=== PATIENT | male | born 1975 | race Caucasian/White ===

== ENCOUNTER 2016-12-20 17:58 | Inpatient (IN) | payer BC ==
[2016-12-20] MEDS ORDERED: ACETAMINOPHEN 500 MG TABLET PO ONE (18:31)
--- NOTE | 2016-12-20 18:43 | Emergency Department Record ---
History of Present Illness - General Source: Patient Mode of Arrival: Wheelchair Limitations: No limitations - History of Present Illness Initial comments: 41 yo male presents to ED with a CC of left lower extremity pain and fever following an injury to the lower extremity 2 days ago. Patient reports that he may have injured his lower extremity falling from his truck, but denies specific lower extremity injury. Patient started to have increase pain, fever, and vomiting last night. Patient reports similar symptoms related to cellulitis previously, denies history of DM. Patient reports a history of lymphedema. MD Complaint: Extremity pain Onset/Timin -: Days(s) Location: Left, Lower Leg History of Same: Yes -: Yes Arthralgia, Yes Fever Radiation: None Quality: Aching Consistency: Constant Improves with: Nothing Associated Symptoms: Fever, Myalgias <ASIA FINCH - Last Filed: 12/20/16 18:49> <Regine Talbert - Last Filed: 12/20/16 20:36> - General Chief complaint: Lower Extremity Pain Stated complaint: LEG PAIN/FEVER Time Seen by Provider: 12/20/16 18:31 - Related Data Home Medications Medication Instructions Recorded Confirmed Last Taken Losartan Potassium [Cozaar] 100 mg PO DAILY 12/30/15 12/20/16 12/20/16 Multivitamin [Multi-Vitamin Daily] 1 each PO DAILY 12/30/15 12/20/16 12/20/16 Amlodipine Besylate [Norvasc] 10 mg PO DAILY 05/01/16 12/20/16 12/20/16 Hydralazine HCl [Apresoline] 25 mg PO ASDIR 05/01/16 12/20/16 12/20/16 Hydrochlorothiazide 25 mg PO ASDIR 05/01/16 12/20/16 12/20/16 [Hydrochlorothiazide] Carvedilol [Coreg] 25 mg PO BID 12/20/16 12/20/16 12/19/16 Cetirizine HCl [Zyrtec] 10 mg PO DAILY 12/20/16 12/20/16 12/19/16 Cholecalciferol (Vitamin D3) 2,000 unit PO DAILY 12/20/16 12/20/16 12/19/16 [Vitamin D3] Levothyroxine Sodium 50 mcg PO DAILY 12/20/16 12/20/16 12/19/16 Allergies Allergy/AdvReac Type Severity Reaction Status Date / Time loratadine [From Claritin] Allergy SHORTNESS Verified 12/20/16 18:16 OF BREATH Travel Screening - Travel/Exposure Within Last 30 Days Have you traveled within the last 30 days?: No <ASIA FINCH - Last Filed: 12/20/16 18:49> Review of Systems Constitutional: Reports: Chills, Fever, Malaise, Weakness. Denies: Night sweats Eyes: Denies: Eye discharge, Eye pain ENT: Denies: Congestion, Ear pain, Epistaxis Respiratory: Denies: Cough, Dyspnea Cardiovascular: Denies: Chest pain, Dyspnea on exertion Endocrine: Reports: Fatigue. Denies: Heat or cold intolerance Gastrointestinal: Reports: Nausea, Vomiting. Denies: Abdominal pain Genitourinary: Denies: Dysuria, Frequency, Incontinence, Retention Musculoskeletal: Reports: Arthralgia. Denies: Back pain, Gout, Joint swelling Skin: Denies: Bruising, Change in color Neurological: Reports: Headache. Denies: Abnormal gait, Confusion, Seizure Psychiatric: Denies: Anxiety Hematological/Lymphatic: Denies: Anemia, Blood Clots <ASIA FINCH - Last Filed: 12/20/16 18:49> Past Medical History - SOCIAL HISTORY Smoking Status: Never smoker Alcohol Use: None Drug Use: None - RESPIRATORY Hx Respiratory Disorders: Yes Hx Asthma: Yes Hx Bronchitis: Yes Hx Pneumonia: Yes Hx Sleep Apnea: Yes Hx of CPAP: Yes Comment:: seasonal allergies - CARDIOVASCULAR Hx Cardio Disorders: Yes Hx Hypertension: Yes Comment:: murmur - NEURO Hx Neuro Disorders: No - GI Hx GI Disorders: Yes Hx Reflux: Yes - Hx Genitourinary Disorders: No - ENDOCRINE Hx Endocrine Disorders: Yes Hx Diabetes: No Hx Thyroid Disease: Yes - MUSCULOSKELETAL Hx Musculoskeletal Disorders: No - PSYCH Hx Psych Problems: No - HEMATOLOGY/ONCOLOGY Hx Hematology/Oncology Disorders: No <ASIA FINCH - Last Filed: 12/20/16 18:49> Family Medical History Any Significant Family History?: Yes Hx Alcohol Use: Father Hx Cancer: Grandparents Hx Diabetes: Father, Grandparents Hx Heart Disease: Father, Grandparents Hx HTN: Father, Grandparents Hx Stroke: Father, Grandparents <ASIA FINCH - Last Filed: 04/14/17 18:49> Physical Exam - General General Appearance: Alert, Oriented x3, Cooperative, Moderate distress Limitations: No limitations - Head Head exam: Atraumatic, Normocephalic, Normal inspection Head exam detail: negative: Abrasion, Contusion, Downs's sign, General tenderness, Hematoma, Laceration - Eye Eye exam: Normal appearance. negative: Conjunctival injection, Periorbital swelling, Periorbital tenderness, Scleral icterus - ENT Ear exam: negative: Auricular hematoma, Auricular trauma Nasal Exam: negative: Active bleeding, Discharge, Dried blood, Foreign body Mouth exam: negative: Drooling, Laceration, Muffled voice, Tongue elevation - Neck Neck exam: Normal inspection. negative: Meningismus, Tenderness - Respiratory Respiratory exam: Normal lung sounds bilaterally. negative: Rales, Respiratory distress, Rhonchi, Stridor - Cardiovascular Cardiovascular Exam: Regular rate, Normal rhythm, Normal heart sounds - GI/Abdominal GI/Abdominal exam: Soft. negative: Rebound, Rigid, Tenderness - Rectal Rectal exam: Deferred - exam: Deferred - Extremities Extremities exam: Other (Lymphedema bilaterally, erythema is present to the left lower extremity anteriorly and laterally on examination) - Back Back exam: Denies: CVA tenderness (R), CVA tenderness (L) - Neurological Neurological exam: Alert, Normal gait, Oriented X3 - Psychiatric Psychiatric exam: Normal affect, Normal mood - Skin Skin exam: Erythema Distribution of rash: LLE Description of rash: Confluent <ASIA FINCH - Last Filed: 12/20/16 18:49> Course Vital Signs 12/20/16 18:21 Temperature 101 F H Pulse Rate 99 H Respiratory 22 Rate Blood Pressure 121/80 Pulse Ox 95 - Reevaluation(s) Reevaluation #1: 12/20/16 18:49 Patient seen and examined, initial orders placed. Case was discussed with oncoming provider, will assume care pending laboratory results. Will order Clindamycin to infuse following the obtaining of culture. <ASIA FINCH - Last Filed: 12/20/16 18:49> Vital Signs 12/20/16 12/20/16 18:21 19:50 Temperature 101 F H 100.2 F H Pulse Rate 99 H Pulse Rate [ 89 Pulse Ox Probe] Respiratory 22 20 Rate Blood Pressure 121/80 Blood Pressure 116/68 [Right Arm] Pulse Ox 95 95 <Regine Talbert - Last Filed: 12/20/16 20:36> Medical Decision Making - Lab Data Result diagrams: 12/20/16 18:31 12/20/16 18:31 <ASIA FINCH - Last Filed: 12/20/16 18:49> - Lab Data Result diagrams: 12/20/16 18:54 12/20/16 18:54 Lab Results 12/20/16 12/20/16 Range/Units 18:54 18:54 WBC 14.7 H (4.2-12.2) K/uL RBC 4.50 (4.40-5.70) M/uL Hgb 12.6 L (14.0-18.0) gm/dl Hct 38.0 L (42.0-52.0) % MCV 84.4 (81-97) fl MCH 28.0 (27-33) pg MCHC 33.2 (32-36) g/dl RDW 14.6 H (11.5-14.5) % Plt Count 155 (130-400) K/uL MPV 11.3 H (7.4-10.4) fl Neutrophils % 88.0 H (47-80) % Band Neutrophils % 4.0 (0-5) % Lymphocytes % 5.0 L (16-45) % Monocytes % 3.0 (0-9) % Eosinophils % Not Reportable Basophils % Not Reportable Platelet Estimate Normal (NORMAL) RBC Morphology Normal Sodium 140 (136-145) mmol/L Potassium 2.9 L (3.5-5.1) mmol/L Chloride 101 (98-107) mmol/L Carbon Dioxide 29.0 (22-30) mmol/L Anion Gap 10.0 (7-16) BUN 20 (9-20) mg/dL Creatinine 1.3 H (0.66-1.25) mg/dL Estimated GFR > 60 ml/min Random Glucose 99 (70-110) mg/dL Lactic Acid 1.6 (0.7-2.1) mmol/L Calcium 8.7 (8.5-10.1) mg/dL Total Bilirubin 1.30 (0.2-1.3) mg/dL AST 42 (17-59) U/L ALT 49 (21-72) U/L Alkaline Phosphatase 55 (38-126) U/L Total Protein 6.9 (6.3-8.2) gm/dL Albumin 4.2 (3.5-5.0) gm/dL Globulin 2.7 (1.4-4.8) gm/dL Albumin/Globulin Ratio 1.6 (1.1-1.8) <Regine Talbert - Last Filed: 12/20/16 20:36> Disposition <ASIA FINCH - Last Filed: 12/20/16 18:49> Disposition: Admit Decision to Admit: Admit from ER Decision to Admit Date: 12/20/16 Decision to Admit Time: 20:29 <Regine Talbert - Last Filed: 12/20/16 20:36> Clinical Impression: Hypokalemia Lower extremity cellulitis Qualifiers: Laterality: left Qualified Code(s): L03.116 - Cellulitis of left lower limb Disposition: Still a Patient at [facility] Condition: (1) Good Forms: Patient Portal Access
[2016-12-20] MEDS ORDERED: 0.9 % SODIUM CHLORIDE 1000ML 1,000 ML IV SCH (18:45)
[2016-12-20] MEDS ORDERED: CLINDAMYCIN 600MG/50ML PREMIX 600 MG in DEXTROSE 1 BAG IV ONE (18:50)
[2016-12-20 18:58] LABS: HEMOGLOBIN 12.6 gm/dl (14.0-18.0); MEAN CELL VOLUME 84.4 fl (81-97); MEAN CORPUSCULAR HGB CONC 33.2 g/dl (32-36); MEAN PLATELET VOLUME 11.3 fl (7.4-10.4); PLATELET COUNT 155 K/uL (130-400); RED CELL DISTRIBUTION WIDTH 14.6 % (11.5-14.5); WHITE BLOOD COUNT W/O DIFF 14.7 K/uL (4.2-12.2)
[2016-12-20 19:08] LABS: PLATELET ESTIMATE NORMAL (NORMAL)
[2016-12-20 19:10] LABS: LACTIC ACID 1.6 mmol/L (0.7-2.1)
[2016-12-20 19:16] LABS: ALB/GLOB RATIO 1.6 (1.1-1.8); ALBUMIN 4.2 gm/dL (3.5-5.0); ALKALINE PHOSPHATASE 55 U/L (38-126); ALT/SGPT 49 U/L (21-72); AST/SGOT 42 U/L (17-59); BLOOD UREA NITROGEN 20 mg/dL (9-20); CREATININE 1.3 mg/dL (0.66-1.25); EST GLOMERULAR FILTRATION RATE > 60 ml/min; GLUCOSE,RANDOM 99 mg/dL (70-110); TOTAL PROTEIN 6.9 gm/dL (6.3-8.2)
[2016-12-20] MEDS ORDERED: POTASSIUM CHLORIDE 20 MEQ TABLET PO ONE (19:41)
[2016-12-20] MEDS ORDERED: SOD CHLOR 0.9% WITH KCL 40MEQ 40 MEQ in 0.9 % SODIUM CHLORIDE 1000ML 1 BAG IV ONE (19:42)
[2016-12-20] MEDS ORDERED: HYDRALAZINE HCL 25 MG TABLET PO SCH (23:33)
[2016-12-20] MEDS ORDERED: CARVEDILOL 25 MG PO SCH (23:33)
[2016-12-20] MEDS ORDERED: HYDROCHLOROTHIAZIDE 25 MG TABLET PO SCH (23:33)
[2016-12-21] MEDS: CLINDAMYCIN 600MG/50ML PREMIX 600 MG in DEXTROSE 1 BAG IV SCH ×5 (00:06→23:01)
[2016-12-21] MEDS: ACETAMINOPHEN 500 MG TABLET PO PRN ×2 (09:26→18:27)
[2016-12-21] MEDS ORDERED: Non-Formulary MISC (Amlodipine Besylate [Norvasc] 10 MG) PO SCH (10:00)
[2016-12-21] MEDS: CARVEDILOL 12.5 MG TABLET PO SCH ×2 (10:48→23:00)
[2016-12-21] MEDS: LEVOTHYROXINE SODIUM 50 MCG TABLET PO SCH (10:49)
[2016-12-21] MEDS: LOSARTAN POTASSIUM 100 MG TABLET PO SCH (10:49)
[2016-12-21] MEDS: AMLODIPINE BESYLATE 5MG TAB PO SCH (10:49)
[2016-12-21] MEDS: Non-Formulary MISC (Cetirizine Hcl [Zyrtec] 10 MG) PO SCH (10:52)
[2016-12-21] MEDS ORDERED: HYDRALAZINE HCL 25 MG TABLET PO ONE (13:01)
[2016-12-21 13:29] LABS: ANION GAP 10.3 (7-16); BLOOD UREA NITROGEN 18 mg/dL (9-20); CARBON DIOXIDE 25.7 mmol/L (22-30); CREATININE 1.1 mg/dL (0.66-1.25); EST GLOMERULAR FILTRATION RATE > 60 ml/min; GLUCOSE,RANDOM 117 mg/dL (70-110)
[2016-12-21] MEDS: ENOXAPARIN 40 MG/0.4 ML SYR SQ SCH (15:09)
[2016-12-22] MEDS: ACETAMINOPHEN 500 MG TABLET PO PRN (06:21)
[2016-12-22] MEDS: CLINDAMYCIN 600MG/50ML PREMIX 600 MG in DEXTROSE 1 BAG IV SCH ×3 (08:04→22:02)
[2016-12-22] MEDS: CARVEDILOL 12.5 MG TABLET PO SCH ×2 (09:34→21:57)
[2016-12-22] MEDS: LEVOTHYROXINE SODIUM 50 MCG TABLET PO SCH (09:35)
[2016-12-22] MEDS: LOSARTAN POTASSIUM 100 MG TABLET PO SCH (09:35)
[2016-12-22] MEDS: AMLODIPINE BESYLATE 5MG TAB PO SCH (09:35)
[2016-12-22] MEDS: Non-Formulary MISC (Cetirizine Hcl [Zyrtec] 10 MG) PO SCH (09:37)
[2016-12-22] MEDS: TMP/SMZ 160MG/800MG TAB PO SCH ×2 (13:31→21:57)
[2016-12-22] MEDS: ENOXAPARIN 40 MG/0.4 ML SYR SQ SCH (13:31)
[2016-12-23] MEDS: CLINDAMYCIN 600MG/50ML PREMIX 600 MG in DEXTROSE 1 BAG IV SCH ×2 (01:52→09:58)
[2016-12-23] MEDS ORDERED: POTASSIUM CHLORIDE 20 MEQ TABLET PO ONE (06:50)
--- NOTE | 2016-12-23 07:00 | Discharge Note ---
VTE H&P Assessment - Risk for VTE Risk for VTE: Yes Risk Level: Moderate Risk Assessment Date: 12/21/16 Risk Assessment Time: 12:45 VTE Orders Placed or Will Be Placed: Yes Discharge Medications - Discharge Medications Prescriptions: Sulfamethoxazole/Trimethoprim [Bactrim Ds Tablet] 1 each PO BID #20 tablet Clindamycin HCl [Cleocin HCl] 300 mg PO TID #30 capsule Home Medications: Ambulatory Orders Losartan Potassium [Cozaar] 100 mg PO DAILY 12/30/15 [Last Taken 12/20/16] Multivitamin [Multi-Vitamin Daily] 1 each PO DAILY 12/30/15 [Last Taken 12/20/16 ] Amlodipine Besylate [Norvasc] 10 mg PO DAILY 05/01/16 [Last Taken 12/20/16] Hydralazine HCl [Apresoline] 25 mg PO DAILY 05/01/16 [Last Taken 12/20/16] Carvedilol [Coreg] 25 mg PO BID 12/20/16 [Last Taken 12/19/16] Cetirizine HCl [Zyrtec] 10 mg PO DAILY 12/20/16 [Last Taken 12/19/16] Cholecalciferol (Vitamin D3) [Vitamin D3] 2,000 unit PO DAILY 12/20/16 [Last Taken 12/19/16] Levothyroxine Sodium 50 mcg PO DAILY 12/20/16 [Last Taken 12/19/16] Clindamycin HCl [Cleocin HCl] 300 mg PO TID #30 capsule 12/23/16 [Last Taken Unknown] Sulfamethoxazole/Trimethoprim [Bactrim Ds Tablet] 1 each PO BID #20 tablet 12/23 [Last Taken Unknown] Discharge Note - Date Date of Discharge Note: 12/23/16 Condition: (1) Good Additional Instructions: follow up with Dr. Nieves tomorrow on tues elevate leg and wear compression socks Forms: Patient Portal Access
--- NOTE | 2016-12-23 07:20 | RADIOLOGY REPORT ---
EXAM: LEFT TIBIA AND FIBULA, FOUR VIEWS HISTORY: FALL, CELLULITIS LEFT LOWER LEG. TECHNIQUE: Four views of the left tibia and fibula were obtained. Comparison: None. FINDINGS: No fracture or dislocation. Extensive soft tissue swelling of the left calf. No soft tissue gas. IMPRESSION: 1. NO ACUTE OSSEOUS ABNORMALITY OF THE LEFT CALF. 2. DIFFUSE EDEMA OR CELLULITIS OF THE LEFT CALF. NO SOFT TISSUE GAS. JOB NUMBER: [id number] MTDD
[2016-12-23] MEDS ORDERED: CLINDAMYCIN 150 MG CAP PO ONE (09:59)
[2016-12-23] MEDS: TMP/SMZ 160MG/800MG TAB PO SCH (10:12)
--- NOTE | 2016-12-23 12:58 | History and Physical Report ---
DATE OF EVALUATION: 12/21/2016 CHIEF COMPLAINT: Redness, swelling, pain, and fever in the left lower leg. HISTORY OF PRESENT ILLNESS: This 41-year-old male fell off his truck 2 days ago, twisting his legs. He does not recall scraping his left lower leg, but it became swollen and red. He developed a fever. He had nausea and vomiting and felt lousy. Came into the Emergency Department and evaluated by first Dr. Jessica and then Dr. Talbert. Admitted to the hospital for cellulitis of the left lower leg and hypokalemia. His potassium was 2.9. PAST MEDICAL HISTORY: He has asthma, sleep apnea, seasonal allergies. He uses CPAP for his sleep apnea. Hypertension. Lymphedema. GERD. Hypothyroidism. PAST SURGICAL HISTORY: T&A and eye surgery as a child. MEDICATIONS ON ADMISSION: Hydrochlorothiazide 25 mg once a day, hydralazine 25 mg 3 times a day, levothyroxine 50 mcg daily, vitamin D3 2000 units daily, Zyrtec 10 mg [id number] daily, carvedilol 25 mg b.i.d., multivitamins 1 daily, losartan 100 mg daily, amlodipine 10 mg daily. ALLERGIES: He is allergic to Claritin. FAMILY PSYCHOSOCIAL HISTORY: He has never smoked. No alcohol or drug use. FAMILY HISTORY: Father is an alcoholic. Grandparents had cancer. Father and grandparents had diabetes. Heart disease for the father and grandparents. Hypertension in father and grandparents. Stroke father and grandparents. REVIEW OF SYSTEMS: HEENT: He did have slight congestion over the last week, but no significant sore throat or cough. Cardiovascular: No chest pain, palpitations, or arrhythmias. Respiratory: No cough, cold or congestion. Gastrointestinal: He did have some nausea and vomiting prior to coming in 2 days prior. Genitourinary: No dysuria, hematuria, frequency, or burning on urination. Musculoskeletal: Moving all 4 extremities. He does have lymphedema of the bilateral legs. Neurologic: No CVA, paralysis, or paresthesias. Endocrine: He has hypothyroidism. No diabetes. Integument: No rash, ulcers, changes in moles, or yellow skin. PHYSICAL EXAMINATION: VITAL SIGNS: Height is 6'2". Weight is 345 pounds. Temperature is 99.5. Pulse is 96. Blood pressure 154/84. Respiratory rate is 18. Pulse ox 98% on room air. HEENT: Pupils equal, round, and reactive to light and accommodation. Extraocular muscles intact. Throat is clear. Nose is clear. Tympanic membranes donaldson. NECK: Supple. No jugular venous distention. No hepatojugular reflux. No carotid bruits. Thyroid is smooth. CARDIOVASCULAR: Regular rate and rhythm without murmurs, clicks, rubs, or gallops. RESPIRATORY: Clear to auscultation and percussion. ABDOMEN: Soft, nontender. Overweight. No peritoneal signs. No rebound or rigidity. EXTREMITIES: Full range of motion. No pitting edema. No cyanosis or clubbing. Peripheral pulses good. There is redness in the left lower leg from the knee down. There is an outline around the leg, but the redness is retracting within the last 12 hours with clindamycin. BREASTS: Normal male breasts. GENITALIA: Normal male genitalia. RECTAL: Deferred. NEUROLOGIC: Cranial nerves II-XII intact. No gross deficits. Sensation normal. Strength normal. Deep tendon reflexes equal bilaterally. Babinski is negative. MENTAL STATUS: Alert and oriented x3. IMPRESSION: 1. Cellulitis of the left lower leg. 2. Hypertension. 3. Lymphedema of both legs. 4. Hypothyroidism. 5. Status post seasonal allergies. PLAN: IV clindamycin 600 mg every 8 hours. Continue his home medications. MTDD
--- NOTE | 2016-12-23 15:14 | Discharge Summary ---
DATE OF ADMISSION: 12/20/2016 DATE OF DISCHARGE: 12/23/2016 at 7:02 a.m. DISCHARGE DIAGNOSES: 1. Cellulitis of the left lower leg. 2. Lymphedema. 3. Hypertension. ATTENDING PHYSICIAN: Sacha Nieves DO REASON FOR HOSPITALIZATION: This 41-year-old male states that he fell off his truck about 2 days prior to admission. He injured both lower legs, but the left one swelled up, became and red, painful, and hot. He came in to the Emergency Department, evaluated by Dr. Domingo, and admitted for cellulitis of the left lower leg. IV antibiotics, clindamycin started in the Emergency Department. SIGNIFICANT FINDINGS: X-ray of the tib/fib was negative for fractures. LABORATORY: WBCs 14,700. Hemoglobin 12.6. His potassium is a little bit low in the Emergency Department at 2.9. He is on hydrochlorothiazide. Will stop that. It came up to 3.3. Will give him another dose of potassium before discharge. His BUN is 20. Creatinine was 1.3 and normalized to 18 and 1.1 during the hospitalization. THERAPY PROVIDED: IV clindamycin 600 mg every 8 hours. Started on oral Bactrim DS b.i.d. the day before admission. He has had no fevers for 24 hours. HOSPITAL COURSE: Gradually improving, but the leg is slow to improve. Seems to be a little slower on this regimen of clinda and Bactrim. Adding the Bactrim seemed to help. CONDITION AT DISCHARGE: Much improved. DISCHARGE INSTRUCTIONS: Follow up with Dr. Nieves tomorrow on Friday for evaluation of his leg. HOME MEDICATIONS: Clindamycin 300 mg every 8 hours for 10 days, Bactrim DS b.i.d. for 10 days. Continue his home medications except for the hydrochlorothiazide. Will stop. Hydralazine 25 mg t.i.d. Levothyroxine 50 mcg daily. Vitamin D3 2000 units daily. Cetirizine Zyrtec 10 mg daily. Coreg 25 mg b.i.d. Multiple vitamins 1 daily. Losartan Cozaar 100 mg daily. Amlodipine 10 mg daily. MTDD
== END 2016-12-23 10:40 | disposition home or self-care (01) | DRG 603 ==
LOC: ER 17:58 → MEDSURG 21:40 → ER 21:48 → MEDSURG 21:59
PROVIDERS: ADMIT Emergency Medicine; ATTEND Emergency Medicine
DX: L03.116 Cellulitis of left lower limb (principal); I10 Essential (primary) hypertension; E03.9 Hypothyroidism, unspecified
CPT/HCPCS: 80048; 80053; 83605; 85027; 96365; 96366; 99223; 99239; 99285; J1650; J7030

== ENCOUNTER 2018-06-19 07:07 | Day surgery (SDC) | payer BC ==
[~2018-06-19 07:07] MED LIST: ACETAMINOPHEN 1,000 MG/100 ML BTL IV ONE; FAMOTIDINE 20MG TABLET PO ONE; MECLIZINE 25 MG TABLET PO ONE; METOCLOPRAMIDE 10 MG TABLET PO ONE
[2018-06-19] MEDS ORDERED: LIDOCAINE 2% MDV (20MG/ML) 20ML VIAL IV ONE (07:08)
[2018-06-19] MEDS ORDERED: NALOXONE 0.4 MG/1 ML VIAL IV ONE (07:08)
[2018-06-19] MEDS ORDERED: KETOROLAC 30 MG/ML VIAL IVP ONE (07:08)
[2018-06-19] MEDS ORDERED: MIDAZOLAM HCL 2MG/2ML VIAL IV ONE (07:08)
[2018-06-19] MEDS ORDERED: BUPIVACAINE 0.25% W/EPI MPF 30ML VIAL IVP ONE (07:08)
[2018-06-19] MEDS ORDERED: PROPOFOL 10 MG/ML VIAL IV ONE (07:08)
[2018-06-19] MEDS ORDERED: SEVOFLURANE 250 ML INH ONE (07:08)
[2018-06-19] MEDS ORDERED: **ER** KETAMINE HCL 500MG/10ML VIAL IV ONE (07:08)
--- NOTE | 2018-06-19 16:00 | Operative Note ---
DATE OF SURGERY: 06/19/2018 Surgeon: Iggy Erickson DO PREOPERATIVE DIAGNOSIS: Torn medial meniscus of the left knee. POSTOPERATIVE DIAGNOSES: 1. Torn medial meniscus of left knee. 2. Chondromalacia of the patella, trochlea, and medial femoral condyle, left knee. OPERATION: 1. Arthroscopic partial medial meniscectomy, left knee. 2. Arthroscopic chondroplasty of the medial femoral condyle, patella, and trochlea, left knee. DESCRIPTION OF PROCEDURE: This 42-year-old male was taken to the operating room and placed in a supine position on the operating room table. General anesthetic was administered. The left lower extremity was elevated. It was exsanguinated and the tourniquet inflated to 300 mmHg. The arthroscopic knee acevedo was applied and the left knee prepped with Hibiclens and draped in the usual sterile fashion. An inferolateral portal was established for the 4 mm arthroscope and initial evaluation of the joint demonstrated normal appearance of the suprapatellar pouch other than the fact that there was some hyperemic synovitis. There was quite an extensive effusion. The patella demonstrated severe grade 2 changes concentrated mostly around the medial ridge but did extend into both the medial and lateral facet. The center of the trochlea demonstrated grade 3 changes mostly near the inferior aspect of the trochlea. The rotating shaver was placed in the joint and chondroplasty was performed of the patella and the trochlea to stabilize the articular cartilage there. The medial compartment was entered and grade 2 chondromalacia of the medial femoral condyle was present, especially posteriorly. This was debrided with the rotating shaver to remove loose flaps of articular cartilage. The meniscus was probed and the root tear of the medial meniscus was present. This appeared to be stable and so it was debrided to healthy appearing meniscus with firm attachment to the meniscal rim. The intracondylar notch was examined and found to be normal. The lateral compartment was entered and the lateral compartment appeared to be normal with no apparent pathology identified in the lateral compartment. The wound was copiously irrigated and suctioned and the instruments were removed. The portals infiltrated with 0.25% Marcaine with epinephrine. Sterile dressings were applied and the patient taken to the recovery room in satisfactory condition. GROSS PATHOLOGY: This patient demonstrated a root tear of the medial meniscus. There was also evidence of grade 2 chondromalacia of the medial femoral condyle with grade 3 changes of the trochlea and grade 2 changes noted in the patella. CC: DO LORETA San
== END 2018-06-19 10:55 | disposition home or self-care (01) ==
LOC: SUR 07:07
PROVIDERS: ATTEND Orthopaedic Surgery
DX: S83.207A Unspecified tear of unspecified meniscus, current injury, left knee, initial encounter (principal); M22.42 Chondromalacia patellae, left knee; M94.262 Chondromalacia, left knee; I10 Essential (primary) hypertension; G47.33 Obstructive sleep apnea (adult) (pediatric)
CPT/HCPCS: 29881; 01400; J1885; J2310

== ENCOUNTER 2019-03-01 16:02 | Inpatient (IN) | payer BC ==
--- NOTE | 2019-03-01 16:33 | Emergency Department Record ---
History of Present Illness - General Chief Complaint: Fever Stated Complaint: CHILLS,FEVER/CELLULITIS? Time Seen by Provider: 03/01/19 16:32 Source: Patient Mode of Arrival: Ambulatory Limitations: No limitations - History of Present Illness Initial Comments: pt developed fever and chills today with nausea. MD Complaint: Fever, Weakness Onset/Timin -: Days(s) Associated Symptoms: Chills, Myalgias, Nausea, Rigors Treatments Prior to Arrival: Ibuprofen Treatment Prior to Arrival Comment:: 12 noon - Related Data Allergies Allergy/AdvReac Type Severity Reaction Status Date / Time loratadine [From Claritin] Allergy SHORTNESS Verified 03/01/19 16:12 OF BREATH Travel Screening - Travel/Exposure Within Last 30 Days Have you traveled within the last 30 days?: No - Travel/Exposure Within Last Year Have you traveled outside the [place] in the last year?: No - Additonal Travel Details Have you been exposed to anyone with a communicable illness?: No - Travel Symptoms Symptom Screening: None Review of Systems Reviewed: No additional complaints except as noted below Constitutional: Reports: As per HPI, Chills, Fever, Malaise. Denies: Night sweats, Weakness, Weight change Eyes: Reports: As per HPI. Denies: Eye discharge, Eye pain, Photophobia, Vision change ENT: Reports: As per HPI. Denies: Congestion, Dental pain, Ear pain, Epistaxis, Hearing loss, Throat pain Respiratory: Reports: As per HPI. Denies: Cough, Dyspnea, Hemoptysis, Stridor, Wheezes Cardiovascular: Reports: As per HPI. Denies: Arrhythmia, Chest pain, Dyspnea on exertion, Edema, Murmurs, Orthopnea, Palpitations, Paroxysmal nocturnal dyspnea, Rheumatic Fever, Syncope Endocrine: Reports: As per HPI. Denies: Fatigue, Heat or cold intolerance, Polydipsia, Polyuria Gastrointestinal: Reports: As per HPI. Denies: Abdominal pain, Constipation, Diarrhea, Hematemesis, Hematochezia, Melena, Nausea, Vomiting Genitourinary: Reports: As per HPI. Denies: Dysuria, Frequency, Hematuria, Incontinence, Retention, Testicular pain, Testicular mass, Urgency Musculoskeletal: Reports: As per HPI. Denies: Arthralgia, Back pain, Gout, Joint swelling, Myalgia, Neck pain Skin: Reports: As per HPI. Denies: Bruising, Change in color, Change in hair/nails, Lesions, Pruritus, Rash Neurological: Reports: As per HPI. Denies: Abnormal gait, Confusion, Headache, Numbness, Paresthesias, Seizure, Tingling, Tremors, Vertigo, Weakness Psychiatric: Reports: As per HPI. Denies: Anxiety, Auditory hallucinations, Depression, Homicidal thoughts, Suicidal thoughts, Visual hallucinations Hematological/Lymphatic: Reports: As per HPI. Denies: Anemia, Blood Clots, Easy bleeding, Easy bruising, Swollen glands Past Medical History - SOCIAL HISTORY Smoking Status: Never smoker Alcohol Use: Occasional Drug Use: None - RESPIRATORY Hx Respiratory Disorders: Yes Hx Asthma: Yes (as a child) Hx Bronchitis: Yes Hx Pneumonia: Yes Hx Sleep Apnea: Yes Hx of CPAP: Yes Comment:: seasonal allergies - CARDIOVASCULAR Hx Cardio Disorders: Yes Hx Edema: Yes (lymphedema left leg worse than right) Hx Hypertension: Yes (fair control) Comment:: murmur - NEURO Hx Neuro Disorders: No - GI Hx GI Disorders: Yes Hx Reflux: Yes (when he drinks whiskey) - Hx Genitourinary Disorders: No - ENDOCRINE Hx Endocrine Disorders: Yes Hx Diabetes: No Hx Thyroid Disease: Yes - MUSCULOSKELETAL Hx Musculoskeletal Disorders: Yes Hx Arthritis: Yes Comment:: left knee pain - PSYCH Hx Psych Problems: No - HEMATOLOGY/ONCOLOGY Hx Hematology/Oncology Disorders: No Family Medical History Any Significant Family History?: Yes Hx Alcohol Use: Father Hx Cancer: Grandparents Hx Diabetes: Father, Grandparents Hx Heart Disease: Father, Grandparents Hx HTN: Father, Grandparents Hx Stroke: Father, Grandparents Physical Exam - General General Appearance: Alert, Oriented x3, Cooperative, Mild distress - Head Head exam: Normal inspection - Eye Eye exam: Normal appearance, PERRL, EOMI Pupils: Normal accommodation - ENT ENT exam: Normal exam, Mucous membranes moist, Normal external ear exam, Normal orophraynx Ear exam: Normal external inspection. negative: External canal tenderness Nasal Exam: Normal inspection. negative: Discharge, Sinus tenderness Mouth exam: Normal external inspection, Tongue normal Teeth exam: Normal inspection. negative: Dental caries Throat exam: Normal inspection. negative: Tonsillar erythema, Tonsillar exudate - Neck Neck exam: Normal inspection, Full ROM. negative: Tenderness - Respiratory Respiratory exam: Normal lung sounds bilaterally. negative: Respiratory distress - Cardiovascular Cardiovascular Exam: Normal rhythm, Normal heart sounds, Tachycardia - GI/Abdominal GI/Abdominal exam: Soft, Normal bowel sounds. negative: Tenderness - Rectal Rectal exam: Deferred - exam: Deferred - Extremities Extremities exam: Full ROM, Normal capillary refill, Tenderness, Other (lymphedema, erythema) - Back Back exam: Reports: Normal inspection, Full ROM. Denies: Muscle spasm, Rash noted, Tenderness - Neurological Neurological exam: Alert, CN II-XII intact, Normal gait, Oriented X3 - Psychiatric Psychiatric exam: Normal affect, Normal mood - Skin Skin exam: Dry, Intact, Normal color, Warm Course Vital Signs 03/01/19 16:04 Temperature 100.2 F H Pulse Rate 110 H Respiratory 20 Rate Blood Pressure 161/96 Pulse Ox 98 Medical Decision Making - Lab Data Result diagrams: 03/01/19 16:22 03/01/19 16:22 Disposition Disposition: Admit Clinical Impression: Cellulitis Qualifiers: Site of cellulitis: extremity Site of cellulitis of extremity: lower extremity Laterality: right Qualified Code(s): L03.115 - Cellulitis of right lower limb Disposition: Still a Patient at [facility] Decision to Admit: Admit from ER Decision to Admit Date: 03/01/19 Decision to Admit Time: 18:40 Forms: Patient Portal Access Quality - Quality Measures Quality Measures: N/A - Blood Pressure Screening Does Patient Have Any of the Following: Active Dx of HTN Blood Pressure Classification: Hypertensive Reading Systolic Measurement: 161 Diastolic Measurement: 96 Screening for High Blood Pressure: Patient Exclusion, Hx of HTN [[id number]]
[2019-03-01] MEDS ORDERED: ACETAMINOPHEN 1,000 MG/100 ML BTL IVPB ONE (16:46)
[2019-03-01] MEDS ORDERED: ONDANSETRON HCL IV 4 MG/2 ML VIAL IVP ONE (16:46)
[2019-03-01 17:04] LABS: HEMATOCRIT 40.4 % (42.0-52.0); HEMOGLOBIN 13.5 gm/dl (14.0-18.0); MEAN CELL VOLUME 84.3 fl (81-97); MEAN CORPUSCULAR HGB CONC 33.4 g/dl (32-36); MEAN PLATELET VOLUME 11.7 fl (7.4-10.4); PLATELET COUNT 169 K/uL (130-400); RED BLOOD COUNT 4.79 M/uL (4.40-5.70); RED CELL DISTRIBUTION WIDTH 14.5 % (11.5-14.5); WHITE BLOOD COUNT W/O DIFF 9.4 K/uL (4.2-12.2)
[2019-03-01 17:07] LABS: MEAN CORPUSCULAR HEMOGLOBIN 28.1 pg (27-33)
[2019-03-01 17:10] LABS: BLOOD UREA NITROGEN 14 mg/dL (6-20); CREATININE 1.2 mg/dL (0.7-1.2); EST GLOMERULAR FILTRATION RATE > 60 mL/min; TOTAL PROTEIN 7.4 g/dL (6.6-8.7)
[2019-03-01 17:12] LABS: GLUCOSE,RANDOM 103 mg/dL (74-109)
[2019-03-01 17:15] LABS: ALB/GLOB RATIO 1.7 (1.1-1.8); ALBUMIN 4.7 g/dL (4.0-5.0); ALKALINE PHOSPHATASE 75 U/L (40-129); ALT/SGPT 41 U/L (<41); AST/SGOT 23 U/L (10.0-50.0)
[2019-03-01 17:18] LABS: INFLUENZA A NEGATIVE (NEGATIVE); INFLUENZA B NEGATIVE (NEGATIVE)
[2019-03-01] MEDS ORDERED: IBUPROFEN 600 MG TABLET PO ONE (18:01)
[2019-03-01] MEDS ORDERED: POTASSIUM CHLORIDE 20 MEQ TABLET PO ONE (18:10)
[2019-03-01] MEDS ORDERED: CEFTRIAXONE 1GM/50ML BAG 1 GM/50 ML BAG IVPB ONE (18:12)
[2019-03-01 18:32] LABS: URINE APPEARANCE CLEAR; URINE BILIRUBIN NEGATIVE (NEGATIVE); URINE BLOOD NEGATIVE (NEGATIVE); URINE COLOR YELLOW; URINE GLUCOSE (UA) NEGATIVE (NEGATIVE); URINE KETONE NEGATIVE (NEGATIVE); URINE LEUKOCYTE ESTERASE NEGATIVE (NEGATIVE); URINE NITRITE NEGATIVE (NEGATIVE); URINE PROTEIN NEGATIVE (NEGATIVE)
[2019-03-01] MEDS: CARVEDILOL 12.5 MG TABLET PO SCH (21:37)
[2019-03-02] MEDS: ACETAMINOPHEN 500 MG TABLET PO PRN ×3 (02:20→15:22)
[2019-03-02] MEDS ORDERED: CEFTRIAXONE 1GM/50ML BAG IVPB SCH (06:00)
[2019-03-02] MEDS: LEVOTHYROXINE SODIUM 75 MCG TABLET PO SCH (06:12)
[2019-03-02 06:41] LABS: ABSOLUTE NEUTROPHIL COUNT 10.51; BASO % 0.1 % (0-6); HEMATOCRIT 37.1 % (42.0-52.0); HEMOGLOBIN 12.2 gm/dl (14.0-18.0); LYMPH % 3.9 % (16-45); MEAN CELL VOLUME 86.1 fl (81-97); MEAN CORPUSCULAR HEMOGLOBIN 28.3 pg (27-33); MEAN CORPUSCULAR HGB CONC 32.9 g/dl (32-36); MEAN PLATELET VOLUME 11.1 fl (7.4-10.4); MONO % 3.8 % (0-9); PLATELET COUNT 134 K/uL (130-400); RED BLOOD COUNT 4.31 M/uL (4.40-5.70); WHITE BLOOD COUNT W/O DIFF 11.4 K/uL (4.2-12.2)
[2019-03-02 06:57] LABS: BLOOD UREA NITROGEN 19 mg/dL (6-20); CREATININE 1.3 mg/dL (0.7-1.2); EST GLOMERULAR FILTRATION RATE > 60 mL/min; GLUCOSE,RANDOM 112 mg/dL (74-109)
[2019-03-02] MEDS: CARVEDILOL 12.5 MG TABLET PO SCH ×2 (09:25→21:26)
[2019-03-02] MEDS: AMLODIPINE BESYLATE 5MG TAB PO SCH (09:26)
[2019-03-02] MEDS: LOSARTAN POTASSIUM 100 MG TABLET PO SCH (09:26)
[2019-03-02] MEDS: CETIRIZINE HCL 10 MG PO SCH (09:26)
[2019-03-02] MEDS: HYDRALAZINE HCL 25 MG TABLET PO SCH ×3 (09:29→21:26)
[2019-03-02] MEDS: HYDROCHLOROTHIAZIDE 25 MG TABLET PO SCH (09:29)
--- NOTE | 2019-03-02 10:17 | History & Physical ---
History of Present Illness - Date of Service Date of Service for History & Physical: 03/02/19 - History of Present Illness Admitting Diagnosis: cellulitis History of Present Illness: 43 year old male patient presented to ED with complaints of chills, nausea, and vomiting. Patient also noted increased left leg swelling and pain over the weekend. Patient denied any known trauma to the affected leg. Reports a history of cellulitis in the affected leg multiple times, with the most recent infection 2 years ago. Past medical history includes lymphedema of LLE, HTN, sleep apnea with CPAP use, arthritis, and hypothyroidism. PCP: Lori Emery NP ED Course: WBC 9.4 VS: Temp 100.2F, HR 110, RR 20, BP 161/96, Pulse ox 98% CXR: negative UA: negative Influenza negative Ceftriaxone 1gm IVP q12h for cellulitis of LLE 03/02/19: Patient A&O x 4, resting in bed. Patient reports continued nausea, chills, sweating, and generalized malaise. Patient has had intermittent fevers over the past 24 hours, with the highest being 101.4. Increased erythema, w armth, swelling, and tenderness of LLE. Will switch antibiotic coverage to Vancomycin at this time. Travel Screening - Travel/Exposure Within Last 30 Days Have you traveled within the last 30 days?: No - Travel/Exposure Within Last Year Have you traveled outside the [place] in the last year?: No - Additonal Travel Details Have you been exposed to anyone with a communicable illness?: No - Travel Symptoms Symptom Screening: None Review of Systems Constitutional: Reports: As per HPI, Chills, Fever, Malaise. Denies: Night sweats, Weakness, Weight change Eyes: Reports: As per HPI. Denies: Eye discharge, Eye pain, Photophobia, Vision change ENT: Reports: As per HPI. Denies: Congestion, Dental pain, Ear pain, Epistaxis, Hearing loss, Throat pain Respiratory: Reports: As per HPI. Denies: Cough, Dyspnea, Hemoptysis, Stridor, Wheezes Cardiovascular: Reports: As per HPI. Denies: Arrhythmia, Chest pain, Dyspnea on exertion, Edema, Murmurs, Orthopnea, Palpitations, Paroxysmal nocturnal dyspnea, Rheumatic Fever, Syncope Endocrine: Reports: As per HPI. Denies: Fatigue, Heat or cold intolerance, Polydipsia, Polyuria Gastrointestinal: Reports: As per HPI. Denies: Abdominal pain, Constipation, Diarrhea, Hematemesis, Hematochezia, Melena, Nausea, Vomiting Genitourinary: Reports: As per HPI. Denies: Dysuria, Frequency, Hematuria, Incontinence, Retention, Testicular pain, Testicular mass, Urgency Musculoskeletal: Reports: As per HPI. Denies: Arthralgia, Back pain, Gout, Joint swelling, Myalgia, Neck pain Skin: Reports: As per HPI. Denies: Bruising, Change in color, Change in hair/nails, Lesions, Pruritus, Rash Neurological: Reports: As per HPI. Denies: Abnormal gait, Confusion, Headache, Numbness, Paresthesias, Seizure, Tingling, Tremors, Vertigo, Weakness Psychiatric: Reports: As per HPI. Denies: Anxiety, Auditory hallucinations, Depression, Homicidal thoughts, Suicidal thoughts, Visual hallucinations Hematological/Lymphatic: Reports: As per HPI. Denies: Anemia, Blood Clots, Easy bleeding, Easy bruising, Swollen glands Past Medical History - SOCIAL HISTORY Smoking Status: Never smoker Alcohol Use: Occasional Drug Use: None - RESPIRATORY Hx Respiratory Disorders: Yes Hx Asthma: Yes (as a child) Hx Bronchitis: Yes Hx Pneumonia: Yes Hx Sleep Apnea: Yes Hx of CPAP: Yes Comment:: seasonal allergies - CARDIOVASCULAR Hx Cardio Disorders: Yes Hx Edema: Yes (lymphedema left leg worse than right) Hx Hypertension: Yes (fair control) Comment:: murmur - NEURO Hx Neuro Disorders: No - GI Hx GI Disorders: Yes Hx Reflux: Yes (when he drinks whiskey) - Hx Genitourinary Disorders: No - ENDOCRINE Hx Endocrine Disorders: Yes Hx Diabetes: No Hx Thyroid Disease: Yes - MUSCULOSKELETAL Hx Musculoskeletal Disorders: Yes Hx Arthritis: Yes Comment:: left knee pain - PSYCH Hx Psych Problems: No - HEMATOLOGY/ONCOLOGY Hx Hematology/Oncology Disorders: No Family Medical History Any Significant Family History?: Yes Hx Alcohol Use: Father Hx Cancer: Grandparents Hx Diabetes: Father, Grandparents Hx Heart Disease: Father, Grandparents Hx HTN: Father, Grandparents Hx Stroke: Father, Grandparents H&P Meds/Allergies - Allergies Allergies: Allergies Allergy/AdvReac Type Severity Reaction Status Date / Time loratadine [From Claritin] Allergy SHORTNESS Verified 03/01/19 16:12 OF BREATH - Home Medications Home Medications Medication Instructions Recorded Confirmed Last Taken Hydralazine HCl 50 mg PO TID 03/02/19 03/02/19 Unknown Hydrochlorothiazide [Hctz] 25 mg PO DAILY 03/02/19 03/02/19 Unknown - Active Medications Active Medications: Current Medications Acetaminophen (Tylenol 500mg Tab) 1,000 mg PO Q6H PRN PRN Reason: PAIN - MILD(1-4)/FEVER Last Admin: 03/02/19 09:27 Dose: 1,000 mg Documented by: Amlodipine Besylate (Norvasc) 10 mg PO DAILY [facility] Last Admin: 03/02/19 09:26 Dose: 10 mg Documented by: Carvedilol (Coreg) 25 mg PO BID [facility] Last Admin: 03/02/19 09:25 Dose: 25 mg Documented by: Hydralazine HCl (Apresoline) 50 mg PO TID [facility] Last Admin: 03/02/19 09:29 Dose: 50 mg Documented by: Hydrochlorothiazide (Hctz 25mg) 25 mg PO DAILY [facility] Last Admin: 03/02/19 09:29 Dose: 25 mg Documented by: Levothyroxine Sodium (Synthroid) 75 mcg PO DAILYTHY [facility] Last Admin: 03/02/19 06:12 Dose: 75 mcg Documented by: Losartan Potassium (Losartan Potassium) 100 mg PO DAILY [facility] Last Admin: 03/02/19 09:26 Dose: 100 mg Documented by: Patient Own Med: Cetirizine Hcl [ Zyrtec] 10 Mg 10 each PO DAILY [facility] Last Admin: 03/02/19 09:26 Dose: Not Given Documented by: Physical Exam - Vital Signs Vital Signs: Vital Signs - Last 24 Hrs Temp Pulse Pulse Resp BP BP BP 03/02/19 09:00 18 03/02/19 08:00 99.6 F 94 H 17 143/66 03/02/19 06:00 98.7 F 84 16 106/55 03/02/19 02:10 100.6 F H 93 H 16 115/47 03/01/19 21:36 98.4 F 79 16 109/50 03/01/19 19:58 18 03/01/19 19:30 100.3 F H 92 H 18 117/59 03/01/19 19:17 99.1 F 89 20 97/59 06/24/19 18:53 100.3 F H 102 H 20 110/68 03/01/19 18:00 101.4 F H 108 H 20 114/63 03/01/19 16:04 100.2 F H 110 H 20 161/96 Pulse Ox 03/02/19 09:00 03/02/19 08:00 96 03/02/19 06:00 96 03/02/19 02:10 96 03/01/19 21:36 98 03/01/19 19:58 03/01/19 19:30 94 L 03/01/19 19:17 95 03/01/19 18:53 94 L 03/01/19 18:00 94 L 03/01/19 16:04 98 - General General Appearance: Alert, Oriented x3, Cooperative, No acute distress Limitations: No limitations - Head Head exam: Normal inspection - Eye Eye exam: Normal appearance, PERRL, EOMI Pupils: Normal accommodation - ENT ENT exam: Normal exam, Mucous membranes moist, Normal external ear exam, Normal orophraynx Ear exam: Normal external inspection. negative: External canal tenderness Nasal Exam: negative: Discharge, Sinus tenderness Mouth exam: Normal external inspection Teeth exam: negative: Dental caries Throat exam: negative: Tonsillar erythema, Tonsillar exudate - Neck Neck exam: Normal inspection, Full ROM. negative: Tenderness - Respiratory Respiratory exam: Normal lung sounds bilaterally. negative: Respiratory distress - Cardiovascular Cardiovascular Exam: Normal rhythm, Normal heart sounds, Tachycardia Peripheral Pulses: 2+: Radial (R), Radial (L), Dorsalis Pedis (R), Dorsalis Pedis (L) - GI/Abdominal GI/Abdominal exam: Soft, Normal bowel sounds. negative: Tenderness - Rectal Rectal exam: Deferred - exam: Deferred - Extremities Extremities exam: Full ROM, Normal capillary refill, Tenderness (LLE), Other (lymphedema at baseline, increased edema, erythema, and warmth of LLE) - Back Back exam: Reports: Normal inspection, Full ROM. Denies: Muscle spasm, Rash noted, Tenderness - Neurological Neurological exam: Alert, CN II-XII intact, Normal gait, Oriented X3 - Psychiatric Psychiatric exam: Normal affect, Normal mood - Skin Skin exam: Dry, Intact, Normal color, Warm Results - Labs Result Diagrams: 03/02/19 06:18 03/02/19 06:18 Labs Last 24 Hours: Laboratory Results - last 24 hr 03/01/19 03/01/19 03/01/19 16:22 16:22 16:22 WBC 9.4 RBC 4.79 Hgb 13.5 L Hct 40.4 L MCV 84.3 MCH 28.1 MCHC 33.4 RDW 14.5 Plt Count 169 MPV 11.7 H Neutrophils % 90.0 H Band Neutrophils % Lymphocytes % Monocytes % Eosinophils % Not Reportable Basophils % Not Reportable Absolute Neutrophils 8.50 Lymphocytes 5.0 L Monocytes 5.0 Basophils Eosinophil Count Sodium 140 Potassium 3.2 L Chloride 100 Carbon Dioxide 26.0 Anion Gap 14.0 BUN 14 Creatinine 1.2 Estimated GFR > 60 Random Glucose 103 Calcium 9.8 Total Bilirubin 0.60 AST 23 ALT 41 Alkaline Phosphatase 75 Total Protein 7.4 Albumin 4.7 Globulin 2.7 Albumin/Globulin Ratio 1.7 TSH Urine Color Urine Appearance Urine pH Ur Specific [place] Urine Protein Urine Glucose (UA) Urine Ketones Urine Blood Urine Nitrite Urine Bilirubin Urine Urobilinogen Ur Leukocyte Esterase Influenza Type A Ag Negative Influenza Type B Ag Negative 03/01/19 03/01/19 03/02/19 16:22 18:20 06:18 WBC 11.4 RBC 4.31 L Hgb 12.2 L Hct 37.1 L MCV 86.1 MCH 28.3 MCHC 32.9 RDW 15.0 H Plt Count 134 MPV 11.1 H Neutrophils % 93.0 H Band Neutrophils % 0.0 Lymphocytes % 3.9 L Monocytes % 3.8 Eosinophils % 0.0 Basophils % 0.1 Absolute Neutrophils 10.51 Lymphocytes 3.0 L Monocytes 4.0 Basophils 0.0 Eosinophil Count 0.0 Sodium Potassium Chloride Carbon Dioxide Anion Gap BUN Creatinine Estimated GFR Random Glucose Calcium Total Bilirubin AST ALT Alkaline Phosphatase Total Protein Albumin Globulin Albumin/Globulin Ratio TSH 5.08 H Urine Color Yellow Urine Appearance Clear Urine pH 8.0 Ur Specific [place] 1.010 Urine Protein Negative Urine Glucose (UA) Negative Urine Ketones Negative Urine Blood Negative Urine Nitrite Negative Urine Bilirubin Negative Urine Urobilinogen 1.0 Ur Leukocyte Esterase Negative Influenza Type A Ag Influenza Type B Ag 03/02/19 06:18 WBC RBC Hgb Hct MCV MCH MCHC RDW Plt Count MPV Neutrophils % Band Neutrophils % Lymphocytes % Monocytes % Eosinophils % Basophils % Absolute Neutrophils Lymphocytes Monocytes Basophils Eosinophil Count Sodium 142 Potassium 3.4 Chloride 103 Carbon Dioxide 27.0 Anion Gap 12.0 BUN 19 Creatinine 1.3 H Estimated GFR > 60 Random Glucose 112 H Calcium 9.0 Total Bilirubin AST ALT Alkaline Phosphatase Total Protein Albumin Globulin Albumin/Globulin Ratio TSH Urine Color Urine Appearance Urine pH Ur Specific [place] Urine Protein Urine Glucose (UA) Urine Ketones Urine Blood Urine Nitrite Urine Bilirubin Urine Urobilinogen Ur Leukocyte Esterase Influenza Type A Ag Influenza Type B Ag - Imaging and Cardiology Chest x-ray Status: Report reviewed VTE H&P Assessment - Risk for VTE Risk for VTE: Yes Risk Level: Moderate Risk Assessment Date: 03/02/19 Risk Assessment Time: 10:53 VTE Orders Placed or Will Be Placed: Yes Plan - Detailed Diagnosis and Plan (1) Cellulitis Current Visit: Yes Status: Acute Qualifiers: Site of cellulitis: extremity Site of cellulitis of extremity: lower extremity Laterality: right Qualified Code(s): L03.115 - Cellulitis of right lower limb Base Code: L03.90 - CELLULITIS, UNSPECIFIED Comment: 03/02/19: -Worsening erythema, swelling, warmth, and pain to LLE. Lymphedema to LLE at baseline -WBC 11.4 -Febrile over the past 24 hours, with Tmax 101.4F -Rocephin IVP q12h started in ER, switching to Vanco at this time due to worsening cellulitis, pharmacy to dose -NS 0.9% @ 125ml/hr -Regular diet (2) Fever Current Visit: Yes Status: Acute Base Code: R50.9 - FEVER, UNSPECIFIED Comment: 03/02/19: -Patient reports chills, sweating, and vomiting [employer] -CXR: negative for acute process -UA: negative for infection -Influenza negative -WBC 9.4 in ER, 11.4 repeated -Tmax 101.4F over past 24 hours -Acetaminophen 1000mg q6h prn fever (3) DVT prophylaxis Current Visit: Yes Status: Acute Base Code: Z29.9 - ENCOUNTER FOR PROPHYLACTIC MEASURES, UNSPECIFIED Comment: 03/02/19: -Moderate risk due to hospitalization and illness -Lovenox 40mg SQ daily -Encouraged ambulation within the room (4) Full code status Current Visit: Yes Status: Acute Base Code: Z78.9 - OTHER SPECIFIED HEALTH STATUS Comment: 03/02/19: -Full code this admission
[2019-03-02] MEDS ORDERED: 0.9 % SODIUM CHLORIDE 1000ML 1,000 ML IV PRN (10:41)
[2019-03-02] MEDS: ENOXAPARIN 40 MG/0.4 ML SYR SQ SCH (11:09)
[2019-03-02] MEDS: 0.9 % SODIUM CHLORIDE 1000ML 1,000 ML IV SCH (11:09)
[2019-03-02] MEDS: VANCOMYCIN 1.5GM/300ML PREMIX 1.5 GM/300 ML PIGGYBACK IVPB SCH ×2 (11:09→19:46)
[2019-03-02] MEDS ORDERED: IBUPROFEN 600 MG TABLET PO PRN (16:54)
[2019-03-02] MEDS ORDERED: 0.9 % SODIUM CHLORIDE 1,000 ML BAG IV ONE (17:09)
[2019-03-02] MEDS ORDERED: IBUPROFEN 400 MG TABLET PO PRN (17:15)
[2019-03-02] MEDS ORDERED: DIPHENHYDRAMINE HCL 50 MG/ML VIAL IVP ONE (19:17)
[2019-03-03] MEDS: ACETAMINOPHEN 500 MG TABLET PO PRN ×2 (00:13→18:44)
[2019-03-03] MEDS: 0.9 % SODIUM CHLORIDE 1000ML 1,000 ML IV SCH ×4 (01:06→22:36)
[2019-03-03] MEDS: VANCOMYCIN 1.5GM/300ML PREMIX 1.5 GM/300 ML PIGGYBACK IVPB SCH ×3 (02:16→18:40)
[2019-03-03] MEDS: DIPHENHYDRAMINE HCL 25 MG CAPSULE PO PRN ×2 (04:34→19:50)
[2019-03-03] MEDS: LEVOTHYROXINE SODIUM 75 MCG TABLET PO SCH (06:03)
[2019-03-03 06:29] LABS: ABSOLUTE NEUTROPHIL COUNT 5.68; BASO % 0.2 % (0-6); EOS % 0.6 % (0-6); HEMOGLOBIN 11.4 gm/dl (14.0-18.0); LYMPH % 5.9 % (16-45); MEAN CELL VOLUME 86.4 fl (81-97); MEAN CORPUSCULAR HEMOGLOBIN 28.1 pg (27-33); MEAN CORPUSCULAR HGB CONC 32.6 g/dl (32-36); MEAN PLATELET VOLUME 10.7 fl (7.4-10.4); MONO % 5.4 % (0-9); PLATELET COUNT 129 K/uL (130-400); RED BLOOD COUNT 4.05 M/uL (4.40-5.70); RED CELL DISTRIBUTION WIDTH 15.2 % (11.5-14.5); WHITE BLOOD COUNT W/O DIFF 6.5 K/uL (4.2-12.2)
[2019-03-03 06:42] LABS: BLOOD UREA NITROGEN 14 mg/dL (6-20); CREATININE 1.1 mg/dL (0.7-1.2); EST GLOMERULAR FILTRATION RATE > 60 mL/min; GLUCOSE,RANDOM 109 mg/dL (74-109)
[2019-03-03] MEDS ORDERED: POTASSIUM CHLORIDE 20 MEQ TABLET PO ONE (06:55)
--- NOTE | 2019-03-03 08:57 | RADIOLOGY REPORT ---
EXAMINATION: Chest 2 view. CLINICAL HISTORY: Fever and malaise. COMPARISON: 03/07/2010 FINDINGS: Cardiomediastinal silhouette is unremarkable. There is mild elevation of the right hemidiaphragm. No focal consolidation or pleural effusion. IMPRESSION: No acute cardiopulmonary abnormality. MTDD
[2019-03-03] MEDS ORDERED: METHYLPREDNISOLONE PF 125MG/VIAL IVP ONE (09:52)
--- NOTE | 2019-03-03 10:00 | Physician Progress Note ---
Subjective - Date Date of Physician Progress Note: 03/03/19 - Subjective Subjective Comment: Continued erythema, swelling, and tenderness to LLE. Patient also noted development of a rash on his left arm and left lower leg. Reports mild itching to rash on arm. Nausea improving, patient has been tolerating PO intake of meals today. Objective - Vital Signs Vital Signs: Vital Signs - Last 24 Hrs Temp Pulse Resp BP Pulse Ox 03/03/19 08:21 98.6 F 77 18 141/71 97 03/03/19 05:49 99.5 F 88 16 146/78 93 L 03/03/19 00:34 97.7 F 78 16 118/58 95 03/02/19 22:00 98.2 F 03/02/19 21:00 90 16 03/02/19 18:36 100.9 F H 90 16 128/65 94 L 03/02/19 15:14 100.6 F H 03/02/19 14:00 99.4 F 86 16 131/71 94 L - General General Appearance: Alert, Oriented x3, Cooperative, No acute distress Limitations: No limitations - Head Head exam: Normal inspection - Eye Eye exam: Normal appearance, PERRL, EOMI Pupils: Normal accommodation - ENT ENT exam: Normal exam, Mucous membranes moist, Normal external ear exam, Normal orophraynx Ear exam: Normal external inspection. negative: External canal tenderness Nasal Exam: negative: Discharge, Sinus tenderness Mouth exam: Normal external inspection Teeth exam: negative: Dental caries Throat exam: negative: Tonsillar erythema, Tonsillar exudate - Neck Neck exam: Normal inspection, Full ROM. negative: Tenderness - Respiratory Respiratory exam: Normal lung sounds bilaterally. negative: Respiratory distress - Cardiovascular Cardiovascular Exam: Normal rhythm, Normal heart sounds, Tachycardia Peripheral Pulses: 2+: Radial (R), Radial (L), Dorsalis Pedis (R), Dorsalis Pedis (L) - GI/Abdominal GI/Abdominal exam: Soft, Normal bowel sounds. negative: Tenderness - Rectal Rectal exam: Deferred - exam: Deferred - Extremities Extremities exam: Full ROM, Normal capillary refill, Tenderness (LLE), Other (lymphedema at baseline, increased edema, erythema, and warmth of LLE) - Back Back exam: Reports: Normal inspection, Full ROM. Denies: Muscle spasm, Rash noted, Tenderness - Neurological Neurological exam: Alert, CN II-XII intact, Normal gait, Oriented X3 - Psychiatric Psychiatric exam: Flat affect, Normal mood - Skin Skin exam: Dry, Intact, Normal color, Warm Assessment and Plan - Assessment and Plan (1) Cellulitis Current Visit: Yes Status: Acute Qualifiers: Site of cellulitis: extremity Site of cellulitis of extremity: lower extremity Laterality: right Qualified Code(s): L03.115 - Cellulitis of right lower limb Base Code: L03.90 - CELLULITIS, UNSPECIFIED Comment: 03/03/19: -Improved erythema, swelling, warmth, and pain to LLE since yesterday. Lymphedema to LLE at baseline -WBC 6.5, lactic acid 1.0 -Febrile over the past 24 hours, with Tmax 100.9F -Rocephin IVP q12h started in ER, switching to Vanco at this time due to worsening cellulitis, pharmacy to dose -NS 0.9% @ 125ml/hr -Regular diet (2) Fever Current Visit: Yes Status: Acute Base Code: R50.9 - FEVER, UNSPECIFIED Comment: 03/03/19: -Patient reports chills, sweating, and vomiting [employer] -CXR: negative for acute process -UA: negative for infection -Influenza negative -WBC 9.4 in ER, 6.5 today -Tmax 100.6F over past 24 hours -Acetaminophen 1000mg q6h prn and motrin 800mg q8h prn (3) Hypokalemia Current Visit: No Status: Acute Base Code: E87.6 - HYPOKALEMIA Comment: 03/03/19: -K 3.0 -Likely due to decreased PO intake -40mEq K PO -Encouraged PO dietary intake (4) Anemia Current Visit: Yes Status: Acute Base Code: D64.9 - ANEMIA, UNSPECIFIED Comment: 03/03/19: -Hgb 13, 12, 11.4 this admission -Patient's baseline Hgb 10-13 -No symptoms of bleeding -TIBC, Ferritin, total iron pending -Start Iron 325mg daily -Patient to follow-up with PCP for further management (5) DVT prophylaxis Current Visit: Yes Status: Acute Base Code: Z29.9 - ENCOUNTER FOR PROPHYLACTIC MEASURES, UNSPECIFIED Comment: 03/03/19: -Moderate risk due to hospitalization and illness -Lovenox 40mg SQ daily -Encouraged ambulation within the room (6) Full code status Current Visit: Yes Status: Acute Base Code: Z78.9 - OTHER SPECIFIED HEALTH STATUS Comment: 03/03/19: -Full code this admission Results - Labs Result Diagrams: 03/03/19 06:11 03/03/19 06:11 Labs Last 24 Hours: Laboratory Results - last 24 hr 03/02/19 03/03/19 03/03/19 17:44 06:11 06:11 WBC 6.5 RBC 4.05 L Hgb 11.4 L Hct 35.0 L MCV 86.4 MCH 28.1 MCHC 32.6 RDW 15.2 H Plt Count 129 L MPV 10.7 H Neutrophils % 88.0 H Band Neutrophils % 0.0 Lymphocytes % 5.9 L Monocytes % 5.4 Eosinophils % 0.6 Basophils % 0.2 Absolute Neutrophils 5.68 Lymphocytes 6.0 L Monocytes 6.0 Basophils 0.0 Eosinophil Count 0.0 Sodium 138 Potassium 3.0 L Chloride 102 Carbon Dioxide 23.0 Anion Gap 13.0 BUN 14 Creatinine 1.1 Estimated GFR > 60 Random Glucose 109 Lactic Acid 1.0 Calcium 8.8 DVT/PE Assessment - Risk for VTE Risk for VTE: No Risk Level: Moderate Risk Assessment Date: 03/02/19 Risk Assessment Time: 10:53 VTE Orders Placed or Will Be Placed: Yes - Active Medicaitons Current Medications: Current Medications Acetaminophen (Tylenol 500mg Tab) 1,000 mg PO Q6H PRN PRN Reason: PAIN - MILD(1-4)/FEVER Last Admin: 03/03/19 00:13 Dose: 1,000 mg Documented by: Amlodipine Besylate (Norvasc) 10 mg PO DAILY [facility] Last Admin: 03/02/19 09:26 Dose: 10 mg Documented by: Carvedilol (Coreg) 25 mg PO BID [facility] Last Admin: 03/02/19 21:26 Dose: 25 mg Documented by: Diphenhydramine HCl (Benadryl Capsule) 50 mg PO Q6H PRN PRN Reason: ITCHING Last Admin: 03/03/19 04:34 Dose: 50 mg Documented by: Enoxaparin Sodium (Lovenox) 40 mg SQ DAILY [facility] Last Admin: 03/02/19 11:09 Dose: 40 mg Documented by: Ferrous Sulfate (Iron) 325 mg PO DAILY [facility] Hydralazine HCl (Apresoline) 50 mg PO TID [facility] Last Admin: 03/02/19 21:26 Dose: 50 mg Documented by: Hydrochlorothiazide (Hctz 25mg) 25 mg PO DAILY [facility] Last Admin: 03/02/19 09:29 Dose: 25 mg Documented by: VANCOMYCIN 1.5GM/300ML PREMIX (Vancomycin 1.5 Gram/300 Ml Bag) 1.5 gm in 300 mls @ 200 mls/hr IVPB Q8H [facility] Last Infusion: 03/03/19 04:49 Dose: Infused Documented by: Sodium Chloride () 1,000 mls @ 125 mls/hr IV .Q8H [facility] Last Admin: 03/03/19 01:06 Dose: 125 mls/hr Documented by: Ibuprofen (Motrin 400mg) 800 mg PO Q8H PRN PRN Reason: FEVER >101 Last Admin: 03/03/19 04:36 Dose: 800 mg Documented by: Levothyroxine [facility]roid) [facility] Losartan Potassium (Losartan Potassium) 100 mg PO DAILY [facility] Last Admin: 03/02/19 09:26 Dose: 100 mg Documented by: Methylprednisolone Sodium Succinate (Solu-Medrol) 125 mg IVP NOW ONE Stop: 03/03/19 09:53 Patient Own Med: Cetirizine Hcl [ Zyrtec] 10 Mg 10 each PO DAILY [facility] Last Admin: 03/02/19 09:26 Dose: Not Given Documented by: AMI Plan - Labs Result Diagrams: 03/03/19 06:11 03/03/19 06:11
[2019-03-03 10:26] LABS: FERRITIN 603.7 ng/mL (30-400)
[2019-03-03] MEDS: HYDRALAZINE HCL 25 MG TABLET PO SCH ×3 (10:57→22:34)
[2019-03-03] MEDS: CARVEDILOL 12.5 MG TABLET PO SCH ×2 (10:59→22:34)
[2019-03-03] MEDS: HYDROCHLOROTHIAZIDE 25 MG TABLET PO SCH (10:59)
[2019-03-03] MEDS: ENOXAPARIN 40 MG/0.4 ML SYR SQ SCH (11:00)
[2019-03-03] MEDS: FERROUS SULFATE 325 MG TAB PO SCH (11:00)
[2019-03-03] MEDS: LOSARTAN POTASSIUM 100 MG TABLET PO SCH (11:00)
[2019-03-03] MEDS: AMLODIPINE BESYLATE 5MG TAB PO SCH (11:00)
--- NOTE | 2019-03-03 16:33 | Inpatient Certification ---
Inpatient Certification Admit to inpatient care: Based on my medical assessment, after consideration of patient's risk factors (age, co-morbidities and patient presenting symptoms and acuity), I expect that this patient will remain in the hospital greater than or equal to two midnights and that the services needed warrant inpatient care because: Patient Risk Factors: [cellulitis, comorbidities, failed 24hrs of antibiotic therapy] Estimated length of stay: [24-48 hours] The patient may reasonably be expected to be discharged or transferred to a hospital within 96 hours after admission to [facility]. Services needed: [IV antibiotics, IV fluids, monitoring, serial labs] Post hospital care (if known): [] I certify that my determination is in accordance with my understanding of Medicare requirements for reasonable and necessary inpatient services. 03/03/19 16:32
[2019-03-03] MEDS: CETIRIZINE HCL 10 MG PO SCH (18:40)
[2019-03-04] MEDS: VANCOMYCIN 1.5GM/300ML PREMIX 1.5 GM/300 ML PIGGYBACK IVPB SCH ×2 (02:34→10:07)
[2019-03-04] MEDS: ACETAMINOPHEN 500 MG TABLET PO PRN (06:11)
[2019-03-04 06:51] LABS: ABSOLUTE NEUTROPHIL COUNT 6.78; HEMATOCRIT 34.7 % (42.0-52.0); HEMOGLOBIN 11.4 gm/dl (14.0-18.0); LYMPH % 6.1 % (16-45); MEAN CELL VOLUME 85.3 fl (81-97); MEAN CORPUSCULAR HGB CONC 32.9 g/dl (32-36); MEAN PLATELET VOLUME 11.7 fl (7.4-10.4); PLATELET COUNT 138 K/uL (130-400); RED BLOOD COUNT 4.07 M/uL (4.40-5.70); RED CELL DISTRIBUTION WIDTH 14.9 % (11.5-14.5); WHITE BLOOD COUNT W/O DIFF 7.8 K/uL (4.2-12.2)
[2019-03-04] MEDS ORDERED: LEVOTHYROXINE SODIUM 88 MCG TABLET PO SCH (07:00)
[2019-03-04 07:11] LABS: BLOOD UREA NITROGEN 14 mg/dL (6-20); CREATININE 0.9 mg/dL (0.7-1.2); EST GLOMERULAR FILTRATION RATE > 60 mL/min; GLUCOSE,RANDOM 144 mg/dL (74-109)
[2019-03-04] MEDS: 0.9 % SODIUM CHLORIDE 1000ML 1,000 ML IV SCH ×2 (08:24→15:53)
[2019-03-04] MEDS ORDERED: POTASSIUM CHLORIDE 20 MEQ TABLET PO SCH (10:00)
[2019-03-04] MEDS: CARVEDILOL 12.5 MG TABLET PO SCH (10:07)
[2019-03-04] MEDS: ENOXAPARIN 40 MG/0.4 ML SYR SQ SCH (10:07)
[2019-03-04] MEDS: HYDROCHLOROTHIAZIDE 25 MG TABLET PO SCH (10:07)
[2019-03-04] MEDS: FERROUS SULFATE 325 MG TAB PO SCH (10:08)
[2019-03-04] MEDS: AMLODIPINE BESYLATE 5MG TAB PO SCH (10:08)
[2019-03-04] MEDS: HYDRALAZINE HCL 25 MG TABLET PO SCH ×2 (10:08→15:54)
[2019-03-04] MEDS: LOSARTAN POTASSIUM 100 MG TABLET PO SCH (10:08)
--- NOTE | 2019-03-04 10:12 | Discharge Summary ---
Providers Discharge Summary Date: 03/04/19 Date of admission: 03/01/19 19:21 Expected Date of Discharge: 03/04/19 Attending physician: GUILLERMO THOMAS Primary care physician: Lori Emery N.P. Physical Exam - Vital Signs Vital Signs: Vital Signs - Last 24 Hrs Temp Pulse Resp BP Pulse Ox 03/04/19 07:35 98.1 F 71 18 151/75 93 L 03/04/19 03:51 98.1 F 81 18 122/65 98 03/04/19 00:00 82 20 140/81 98 03/03/19 20:02 78 18 03/03/19 20:00 99.4 F 92 H 18 144/69 93 L 03/03/19 17:05 98.1 F 78 18 153/85 100 - General General Appearance: Alert, Oriented x3, Cooperative, No acute distress Limitations: No limitations - Head Head exam: Normal inspection - Eye Eye exam: Normal appearance, PERRL, EOMI Pupils: Normal accommodation - ENT ENT exam: Normal exam, Mucous membranes moist, Normal external ear exam, Normal orophraynx Ear exam: Normal external inspection. negative: External canal tenderness Nasal Exam: negative: Discharge, Sinus tenderness Mouth exam: Normal external inspection Teeth exam: negative: Dental caries Throat exam: negative: Tonsillar erythema, Tonsillar exudate - Neck Neck exam: Normal inspection, Full ROM. negative: Tenderness - Respiratory Respiratory exam: Normal lung sounds bilaterally. negative: Respiratory distress - Cardiovascular Cardiovascular Exam: Regular rate, Normal rhythm, Normal heart sounds Peripheral Pulses: 2+: Radial (R), Radial (L), 3+: Dorsalis Pedis (R), Dorsalis Pedis (L) - GI/Abdominal GI/Abdominal exam: Soft, Normal bowel sounds. negative: Tenderness - Rectal Rectal exam: Deferred - exam: Deferred - Extremities Extremities exam: Full ROM, Normal capillary refill, Tenderness (LLE), Other (lymphedema at baseline, increased edema and erythema of LLE) - Back Back exam: Reports: Normal inspection, Full ROM. Denies: Muscle spasm, Rash noted, Tenderness - Neurological Neurological exam: Alert, CN II-XII intact, Normal gait, Oriented X3 - Psychiatric Psychiatric exam: Normal affect, Normal mood - Skin Skin exam: Dry, Intact, Normal color, Warm Hospitalization - Hospitalization Admission Diagnosis: cellulitis - Problem List/Discharge Diagnosis (1) Cellulitis Current Visit: Yes Status: Acute Discharge Diagnosis: Site of cellulitis: extremity Site of cellulitis of extremity: lower extremity Laterality: right Qualified Code(s): L03.115 - Cellulitis of right lower limb Base Code: L03.90 - CELLULITIS, UNSPECIFIED Comment: 03/04/19: -Improved erythema, swelling, warmth, and pain to LLE since yesterday. Lymphedema to LLE at baseline -WBC 6.5, lactic acid 1.0 -Afebrile over the past 24 hours -Rocephin IVP q12h started in ER, switched to Vanco due to worsening cellulitis, pharmacy to dose -NS 0.9% @ 125ml/hr -Regular diet -DC with Bactrim DS BID x 10 days (2) Fever Current Visit: Yes Status: Acute Base Code: R50.9 - FEVER, UNSPECIFIED Comment: 03/04/19: -Patient reports chills, sweating, and vomiting [employer] -CXR: negative for acute process -UA: negative for infection -Influenza negative -WBC 9.4 in ER, 6.5 today -Afebrile over past 24 hours -Acetaminophen 1000mg q6h prn and motrin 800mg q8h prn (3) Hypokalemia Current Visit: No Status: Acute Base Code: E87.6 - HYPOKALEMIA Comment: 03/04/19: -K 3.3 -Likely due to decreased PO intake -20mEq K PO -Encouraged PO dietary intake (4) Anemia Current Visit: Yes Status: Acute Base Code: D64.9 - ANEMIA, UNSPECIFIED Comment: 03/04/19: -Hgb 13, 12, 11.4 this admission -Patient's baseline Hgb 10-13 -No symptoms of bleeding -Iron 24, TIBC 201 -Start Iron 325mg daily -Patient to follow-up with PCP for further management (5) DVT prophylaxis Current Visit: Yes Status: Acute Base Code: Z29.9 - ENCOUNTER FOR PROPHYLACTIC MEASURES, UNSPECIFIED Comment: 03/04/19: -Moderate risk due to hospitalization and illness -Lovenox 40mg SQ daily -Encouraged ambulation within the room -DC at discharge (6) Full code status Current Visit: Yes Status: Acute Base Code: Z78.9 - OTHER SPECIFIED HEALTH STATUS Comment: 03/04/19: -Full code this admission - Hospitalization Course Disposition: Home, Self-Care Hospital Course: 43 year old male patient presented to ED with complaints of chills, nausea, and vomiting. Patient also noted increased left leg swelling and pain over the weekend. Patient denied any known trauma to the affected leg. Reports a history of cellulitis in the affected leg multiple times, with the most recent infection 2 years ago. Past medical history includes lymphedema of LLE, HTN, sleep apnea with CPAP use, arthritis, and hypothyroidism. PCP: Lori Emery NP ED Course: WBC 9.4 VS: Temp 100.2F, HR 110, RR 20, BP 161/96, Pulse ox 98% CXR: negative UA: negative Influenza negative Ceftriaxone 1gm IVP q12h for cellulitis of LLE 03/02/19: Patient A&O x 4, resting in bed. Patient reports continued nausea, chills, sweating, and generalized malaise. Patient has had intermittent fevers over the past 24 hours, with the highest being 101.4. Increased erythema, warmth, swelling, and tenderness of LLE. Will switch antibiotic coverage to Vancomycin at this time. 03/04/19: Patient A&O x 4, sitting on edge of bed. Patient has remained afebrile x 24 hours, improved PO intake. Improved swelling and warmth of LLE. Patient to remain off work until further evaluated on 03/08/19. Bactrim DS BID x 10 days at discharge. Procedures: Imaging and X-Rays 03/01/19 16:40 CHEST 2 VIEWS [RAD] Stat Abnormal Labs: Abnormal Lab Results 03/01/19 03/01/19 03/01/19 Range/Units 16:22 16:22 16:22 RBC (4.40-5.70) M/uL Hgb 13.5 L (14.0-18.0) gm/dl Hct 40.4 L (42.0-52.0) % RDW (11.5-14.5) % Plt Count (130-400) K/uL MPV 11.7 H (7.4-10.4) fl Neutrophils % 90.0 H (47-80) % Lymphocytes % (16-45) % Lymphocytes 5.0 L (16-45) % Potassium 3.2 L (3.4-4.5) mmol/L Creatinine (0.7-1.2) mg/dL Random Glucose (74-109) mg/dL Iron (59-158) ug/dL % Saturation (20-50) % Ferritin (30-400) ng/mL TSH 5.08 H (0.270-4.20) uIU/mL Vancomycin Trough (5.0-10.0) ug/mL 03/02/19 03/02/19 03/03/19 Range/Units 06:18 06:18 06:11 RBC 4.31 L 4.05 L (4.40-5.70) M/uL Hgb 12.2 L 11.4 L (14.0-18.0) gm/dl Hct 37.1 L 35.0 L (42.0-52.0) % RDW 15.0 H 15.2 H (11.5-14.5) % Plt Count 129 L (130-400) K/uL MPV 11.1 H 10.7 H (7.4-10.4) fl Neutrophils % 93.0 H 88.0 H (47-80) % Lymphocytes % 3.9 L 5.9 L (16-45) % Lymphocytes 3.0 L 6.0 L (16-45) % Potassium (3.4-4.5) mmol/L Creatinine 1.3 H (0.7-1.2) mg/dL Random Glucose 112 H (74-109) mg/dL Iron (59-158) ug/dL % Saturation (20-50) % Ferritin (30-400) ng/mL TSH (0.270-4.20) uIU/mL Vancomycin Trough (5.0-10.0) ug/mL 03/03/19 03/03/19 03/03/19 Range/Units 06:11 06:11 10:41 RBC (4.40-5.70) M/uL Hgb (14.0-18.0) gm/dl Hct (42.0-52.0) % RDW (11.5-14.5) % Plt Count (130-400) K/uL MPV (7.4-10.4) fl Neutrophils % (47-80) % Lymphocytes % (16-45) % Lymphocytes (16-45) % Potassium 3.0 L (3.4-4.5) mmol/L Creatinine (0.7-1.2) mg/dL Random Glucose (74-109) mg/dL Iron 24 L (59-158) ug/dL % Saturation 11 L (20-50) % Ferritin 603.7 H (30-400) ng/mL TSH (0.270-4.20) uIU/mL Vancomycin Trough 13.3 H (5.0-10.0) ug/mL 03/04/19 03/04/19 Range/Units 06:25 06:25 RBC 4.07 L (4.40-5.70) M/uL Hgb 11.4 L (14.0-18.0) gm/dl Hct 34.7 L (42.0-52.0) % RDW 14.9 H (11.5-14.5) % Plt Count (130-400) K/uL MPV 11.7 H (7.4-10.4) fl Neutrophils % 87.0 H (47-80) % Lymphocytes % 6.1 L (16-45) % Lymphocytes 6.0 L (16-45) % Potassium 3.3 L (3.4-4.5) mmol/L Creatinine (0.7-1.2) mg/dL Random Glucose 144 H (74-109) mg/dL Iron (59-158) ug/dL % Saturation (20-50) % Ferritin (30-400) ng/mL TSH (0.270-4.20) uIU/mL Vancomycin Trough (5.0-10.0) ug/mL Condition at Discharge: (2) Stable VTE Discharge VTE Reason For No Overlap Therapy: Not Indicated Discharge Medications - Discharge Medications Prescriptions: Sulfamethoxazole/Trimethoprim [Bactrim Ds Tablet] 1 each PO BID #20 tablet Losartan Potassium [Cozaar] 100 mg PO DAILY #30 tablet Hydrochlorothiazide [Hctz] 25 mg PO DAILY #30 tablet Hydralazine HCl 50 mg PO TID #90 tablet Ferrous Sulfate [Iron] 325 mg PO DAILY #30 tablet Levothyroxine Sodium [Synthroid] 88 mcg PO DAILYTHY #30 tablet Home Medications: Ambulatory Orders Multivitamin [Multi-Vitamin Daily] 1 each PO DAILY 12/30/15 [Last Taken 03/01/19] Amlodipine Besylate [Norvasc] 10 mg PO DAILY 05/01/16 [Last Taken 03/01/19] Carvedilol [Coreg] 25 mg PO BID 12/20/16 [Last Taken 03/01/19] Cetirizine HCl [Zyrtec] 10 mg PO DAILY 12/20/16 [Last Taken 03/01/19] Cholecalciferol (Vitamin D3) [Vitamin D3] 2,000 unit PO DAILY 12/20/16 [Last Taken 03/01/19] Ferrous Sulfate [Iron] 325 mg PO DAILY #30 tablet 03/04/19 [Last Taken Unknown] Hydralazine HCl 50 mg PO TID #90 tablet 03/04/19 [Last Taken Unknown] Hydrochlorothiazide [Hctz] 25 mg PO DAILY #30 tablet 03/04/19 [Last Taken Unknown] Levothyroxine Sodium [Synthroid] 88 mcg PO DAILYTHY #30 tablet 03/04/19 [Last Taken Unknown] Losartan Potassium [Cozaar] 100 mg PO DAILY #30 tablet 03/04/19 [Last Taken Unknown] Sulfamethoxazole/Trimethoprim [Bactrim Ds Tablet] 1 each PO BID #20 tablet 03/04/19 [Last Taken Unknown] Discharge Plan - Discharge Instructions Activity at Discharge: Increase Activity as Tolerated Diet at Discharge: Advance to Usual Diet Additional Instructions: -Hospital follow up appointment with Elin Hung at [facility] on FridayMarch 08 at 3PM -Start the Bactrim tonight, then take it twice a day starting tomorrow -Start taking the new dose of Levothyroxine, 88mcg -Start taking Iron daily Quality Measures - Quality Measures Quality Measures: Documentation of Current Medications in Medical Record, Screening for High Blood Pressure and F/U Documented - Current Medications Quality Measure: Measure #130: Documentation of Current Medications Documentation of Current Medications: <Current Medications Documented/Reviewed> [G8427] - Blood Pressure Screening Quality Measure: Screening for High Blood Pressure and Follow-Up Documented Does Patient Have Any of the Following: Active Dx of HTN Blood Pressure Classification: Hypertensive Reading Systolic Measurement: 161 Diastolic Measurement: 96 Screening for High Blood Pressure: Patient Exclusion, Hx of HTN [G9744] - Elder Abuse Suspicion Index EASI Reference Information: Jennifer LAWRENCE, Parris C, Suri D, Tamra Kumar.Development and validation of a tool to assist physicians identification of elder abuse: The Elder Abuse Suspicion Index (EASI ). Journal of Elder Abuse and Neglect, 2008; 20 (3): 276-300.
[2019-03-04] MEDS: CETIRIZINE HCL 10 MG PO SCH (11:59)
== END 2019-03-04 16:30 | disposition home or self-care (01) | DRG 603 ==
LOC: ER 16:02 → OBSVTOIN 19:21 → MEDSURG 19:21
PROVIDERS: ADMIT Internal Medicine; ATTEND Internal Medicine
DX: L03.115 Cellulitis of right lower limb (principal); R50.9 Fever, unspecified; E87.6 Hypokalemia; D64.9 Anemia, unspecified; I10 Essential (primary) hypertension; I89.0 Lymphedema, not elsewhere classified; R01.1 Cardiac murmur, unspecified; E03.9 Hypothyroidism, unspecified; M19.90 Unspecified osteoarthritis, unspecified site
CPT/HCPCS: 71046; 80048; 80053; 80202; 81003; 82728; 83550; 83605; 84443; 85027; 87040; 87400; 96365; 96366; 96375; 99285; J0696; J1200; J1650; J2405; J2930; J3370; J7030

== ENCOUNTER 2019-04-11 19:13 | Emergency (ER) | payer BC ==
--- NOTE | 2019-04-11 19:51 | Emergency Department Record ---
History of Present Illness - General Chief complaint: Male Urogenital Problem Stated complaint: PROLONGED ERECTION Time Seen by Provider: 04/11/19 19:25 Source: Patient Mode of Arrival: Ambulatory Limitations: No limitations - History of Present Illness Initial comments: The patient is here due to having a prolonged erection for the last 12 hours. He is having mild pain to the penis but no AP, nausea, vomiting, or fever. The patient has had similar problems 3-4 times in the last month but it has only lasted 4 or 5 hours and then resolved. He denies taking any erectile medicines or any injections for erections. The patient is able to urinate with mild difficulty. MD Complaint: Other Onset/Timin -: Hour(s) Location: Penis Radiation: None Severity: Mild Severity scale (1-10): 4 Improves with: None Worsens with: None Reports: Denies other symptoms - Related Data Sexually active: Yes Allergies Allergy/AdvReac Type Severity Reaction Status Date / Time loratadine [From Claritin] Allergy SHORTNESS Unverified 03/10/19 09:26 OF BREATH Travel Screening - Travel/Exposure Within Last 30 Days Have you traveled within the last 30 days?: No - Travel/Exposure Within Last Year Have you traveled outside the [place] in the last year?: No - Additonal Travel Details Have you been exposed to anyone with a communicable illness?: No - Travel Symptoms Symptom Screening: None Review of Systems Constitutional: Denies: Chills, Fever Eyes: Denies: Eye discharge ENT: Denies: Congestion Respiratory: Denies: Cough, Dyspnea Past Medical History - SOCIAL HISTORY Smoking Status: Never smoker Alcohol Use: Occasional Drug Use: None - RESPIRATORY Hx Respiratory Disorders: Yes Hx Asthma: Yes (as a child) Hx Bronchitis: Yes Hx Pneumonia: Yes Hx Sleep Apnea: Yes Hx of CPAP: Yes Comment:: seasonal allergies - CARDIOVASCULAR Hx Cardio Disorders: Yes Hx Edema: Yes (lymphedema left leg worse than right) Hx Hypertension: Yes (fair control) Comment:: murmur - NEURO Hx Neuro Disorders: No - GI Hx GI Disorders: Yes Hx Reflux: Yes (when he drinks whiskey) - Hx Genitourinary Disorders: No - ENDOCRINE Hx Endocrine Disorders: Yes Hx Diabetes: No Hx Thyroid Disease: Yes - MUSCULOSKELETAL Hx Musculoskeletal Disorders: Yes Hx Arthritis: Yes Comment:: left knee pain - PSYCH Hx Psych Problems: No - HEMATOLOGY/ONCOLOGY Hx Hematology/Oncology Disorders: No Family Medical History Any Significant Family History?: No Hx Alcohol Use: Father Hx Cancer: Grandparents Hx Diabetes: Father, Grandparents Hx Heart Disease: Father, Grandparents Hx HTN: Father, Grandparents Hx Stroke: Father, Grandparents Physical Exam - General General Appearance: Alert, Oriented x3, Cooperative, No acute distress - Head Head exam: Atraumatic, Normocephalic, Normal inspection - Eye Eye exam: Normal appearance, PERRL - Neck Neck exam: Normal inspection, Full ROM. negative: Tenderness - Respiratory Respiratory exam: Normal lung sounds bilaterally. negative: Respiratory distress - Cardiovascular Cardiovascular Exam: Regular rate, Normal rhythm, Normal heart sounds - GI/Abdominal GI/Abdominal exam: Soft, Normal bowel sounds. negative: Tenderness - exam: Circumcision. negative: Normal inspection (The penis is fully erected and mildly tender.), Testicular tenderness - Extremities Extremities exam: Pedal edema (chronic.). negative: Normal inspection Course Vital Signs 04/11/19 19:27 Temperature 98.2 F Pulse Rate 80 Respiratory 20 Rate Blood Pressure 191/99 Pulse Ox 97 - Reevaluation(s) Reevaluation #1: Due to no urology here at [facility] I did discuss the need for transfer with the patient. He elected to go to [facility]. I then did discuss the case with Dr. Camilo at [facility] and he did accept the patient in transfer. 04/11/19 19:50 Medical Decision Making - Lab Data Result diagrams: 04/11/19 19:45 04/11/19 19:45 Disposition Disposition: Transfer Clinical Impression: Priapism, unspecified Disposition: Acute Care Hospital Transfer Transfer To: [facility] Reason For Transfer: Urology Accepting Physician: Ton Time Discussed w/Accepting Physician: 19:53 Condition: (2) Stable Instructions: Priapism (ED) Additional Instructions: Please proceed directly to the ER at [facility] for further evaluation. Forms: Patient Portal Access Time of Disposition: 19:54 Quality - Quality Measures Quality Measures: N/A - Blood Pressure Screening View Details: Yes Does Patient Have Any of the Following: Active Dx of HTN Blood Pressure Classification: Hypertensive Reading Systolic Measurement: 191 Diastolic Measurement: 99 Screening for High Blood Pressure: Patient Exclusion, Hx of HTN [G9744]
[2019-04-11 19:55] LABS: ABSOLUTE NEUTROPHIL COUNT 4.37; BASO % 0.5 % (0-6); EOS % 3.1 % (0-6); GRAN % 70.3 % (47-80); HEMOGLOBIN 12.8 gm/dl (14.0-18.0); LYMPH % 18.2 % (16-45); MEAN CELL VOLUME 84.4 fl (81-97); MEAN CORPUSCULAR HEMOGLOBIN 27.7 pg (27-33); MEAN CORPUSCULAR HGB CONC 32.8 g/dl (32-36); MEAN PLATELET VOLUME 11.1 fl (7.4-10.4); MONO % 7.9 % (0-9); PLATELET COUNT 246 K/uL (130-400); RED BLOOD COUNT 4.62 M/uL (4.40-5.70); RED CELL DISTRIBUTION WIDTH 15.3 % (11.5-14.5); URINE APPEARANCE CLEAR; URINE BILIRUBIN NEGATIVE (NEGATIVE); URINE BLOOD NEGATIVE (NEGATIVE); URINE COLOR YELLOW; URINE GLUCOSE (UA) NEGATIVE (NEGATIVE); URINE KETONE NEGATIVE (NEGATIVE); URINE LEUKOCYTE ESTERASE NEGATIVE (NEGATIVE); URINE NITRITE NEGATIVE (NEGATIVE); URINE PROTEIN NEGATIVE (NEGATIVE); WHITE BLOOD COUNT W/O DIFF 6.2 K/uL (4.2-12.2)
[2019-04-11 20:08] LABS: BLOOD UREA NITROGEN 18 mg/dL (6-20); EST GLOMERULAR FILTRATION RATE > 60 mL/min
[2019-04-11 20:11] LABS: GLUCOSE,RANDOM 102 mg/dL (74-109)
== END 2019-04-11 20:10 | disposition short-term general hospital (02) ==
LOC: ER 19:13
DX: N48.30 Priapism, unspecified (principal); N48.89 Other specified disorders of penis; I10 Essential (primary) hypertension; R60.0 Localized edema
CPT/HCPCS: 80048; 81003; 85025; 99285